=== PATIENT | female | born 1995 | race Caucasian/White ===

== ENCOUNTER 2017-08-17 02:57 | Emergency (ER) | payer OTHER ==
[~2017-08-17] VITALS: Ht 160 cm; Wt 61.4 kg
[~2017-08-17 02:57] MED LIST: BACT400T PO
[2017-08-17 03:01] VITALS: BP 116/63; PULSE 91; RESP 18; TEMP 98; O2SAT 99
--- NOTE | 2017-08-17 04:33 | PD ---
HPI Chief Complaint: Related Problem Time Seen by Provider: 04:32 Travel History International Travel<30 days: No Contact w/Intl Traveler<30days: No Traveled to known affect area: No History of Present Illness HPI The patient is a 21-year-old female that came to the emergency department because she wants confirmation on her test. She had 2 test which were positive at home and [facility] On the third of this month. She has some minimal cramping. She denies any vaginal bleeding and is in no pain now. She is G1, P0, A0. PFSH Past Medical History ADHD: No Anxiety: Yes Cancer: No Cardiovascular Problems: No Diabetes: No Diminished Hearing: No Psychiatric: No Migraines: No Seizures: No Thyroid Disease: No Ulcer: No Tetanus Vaccination: Unknown Influenza Vaccination: No ?: Past Surgical History Other Surgery: No Social History Alcohol Use: No Tobacco Use: No Substance Use: No (DENIES) Allergies-Medications (Allergen,Severity, Reaction): Coded Allergies: No Known Allergies (Unverified , 08/21/13) Reported Meds & Prescriptions Reported Meds & Active Scripts Active Reported Bactrim (Sulfamethoxazole-Trimethoprim) 400-80 Mg Tab 1 Tab PO BID Review of Systems Except as stated in HPI: all other systems reviewed are Neg Physical Exam Narrative GENERAL: The patient is alert, oriented 3 in no apparent distress. Her vital signs are normal. SKIN: Focused skin assessment warm/dry. HEAD: Atraumatic. Normocephalic. EYES: Pupils equal and round. No scleral icterus. No injection or drainage. ENT: No nasal bleeding or discharge. Mucous membranes pink and moist. NECK: Trachea midline. No JVD. CARDIOVASCULAR: Regular rate and rhythm. No murmur appreciated. RESPIRATORY: No accessory muscle use. Clear to auscultation. Breath sounds equal bilaterally. GASTROINTESTINAL: Abdomen soft, non-tender, nondistended. Hepatic and splenic margins not palpable. No guarding or rebound is present. MUSCULOSKELETAL: No obvious deformities. No clubbing. No cyanosis. No edema. NEUROLOGICAL: Awake and alert. No obvious cranial nerve deficits. Motor grossly within normal limits. Normal speech. PSYCHIATRIC: Appropriate mood and affect; insight and judgment normal. Data Data Last Documented VS Vital Signs Date Time Temp Pulse Resp B/P (MAP) Pulse Ox O2 Delivery O2 Flow Rate FiO2 08/17/17 03:43 16 08/17/17 03:01 98.0 91 116/63 (80) 99 Orders Orders Beta Hcg (Quant/Titer) (08/17/17 04:33) Complete Blood Count With Diff (08/17/17 04:33) Basic Metabolic Panel (Bmp) (08/17/17 04:33) Urinalysis - C+S If Indicated (08/17/17 04:33) Labs Laboratory Tests Test 08/17/17 04:41 White Blood Count 6.9 TH/MM3 Red Blood Count 4.01 MIL/MM3 Hemoglobin 11.6 GM/DL Hematocrit 35.4 % Mean Corpuscular Volume 88.3 FL Mean Corpuscular Hemoglobin 28.9 PG Mean Corpuscular Hemoglobin Concent 32.7 % Red Cell Distribution Width 12.6 % Platelet Count 220 TH/MM3 Mean Platelet Volume 9.4 FL Neutrophils (%) (Auto) 70.7 % Lymphocytes (%) (Auto) 22.2 % Monocytes (%) (Auto) 5.8 % Eosinophils (%) (Auto) 0.7 % Basophils (%) (Auto) 0.6 % Neutrophils # (Auto) 5.0 TH/MM3 Lymphocytes # (Auto) 1.5 TH/MM3 Monocytes # (Auto) 0.4 TH/MM3 Eosinophils # (Auto) 0.0 TH/MM3 Basophils # (Auto) 0.0 TH/MM3 CBC Comment DIFF FINAL Differential Comment Urine Color YELLOW Urine Turbidity CLEAR Urine pH 5.5 Urine Specific [place] 1.020 Urine Protein NEG mg/dL Urine Glucose (UA) NEG mg/dL Urine Ketones NEG mg/dL Urine Occult Blood NEG Urine Nitrite NEG Urine Bilirubin NEG Urine Urobilinogen 0.2 MG/DL Urine Leukocyte Esterase NEG Urine RBC 0-2 /hpf Urine WBC 0-2 /hpf Urine Squamous Epithelial Cells 0-5 /hpf Urine Bacteria NONE /hpf Microscopic Urinalysis Comment CULT NOT INDICATED Blood Urea Nitrogen 11 MG/DL Creatinine 0.57 MG/DL Random Glucose 90 MG/DL Calcium Level 8.6 MG/DL Sodium Level 137 MEQ/L Potassium Level 3.6 MEQ/L Chloride Level 106 MEQ/L Carbon Dioxide Level 23.4 MEQ/L Anion Gap 8 MEQ/L Estimat Glomerular Filtration Rate 137 ML/MIN Human Chorionic Gonadotropin, Quant 243 MIU/ML MDM Medical Decision Making Medical Screen Exam Complete: Yes Emergency Medical Condition: Yes Medical Record Reviewed: Yes Interpretation(s) The CBC is normal. The urinalysis shows specific gravity 1.020 and is completely normal and culture is not indicated. The beta-hCG is 243 and the basic metabolic profile is normal. Differential Diagnosis Early , anemia, electrolyte disorder Narrative Course The patient at this time has an uncomplicated, likely intrauterine . This is very early and she needs to follow-up with the health department as soon as possible. Diagnosis Primary Impression: Additional Instructions: As we discussed, follow-up with the health department, take your test with you. Disposition: 01 DISCHARGE HOME Condition: Stable Martinez Gomez MD Aug 17, 2017 04:33
[2017-08-17 05:01] LABS: BILIRUBIN, URINE NEG (NEG); BLOOD, URINE NEG (NEG); GLUCOSE,URINE NEG (NEG); KETONE, URINE NEG (NEG); NITRITE,URINE NEG (NEG); PH, URINE 5.5 (5.0-8.5); URINE COLOR YELLOW (YELLW/STRAW); URINE LEUKOCYTE ESTERASE NEG (NEG)
[2017-08-17 05:02] LABS: BASOPHIL % 0.6 % (0.0-2.0); EOSINOPHIL % 0.7 % (0.0-4.0); HEMATOCRIT 35.4 % (35.0-46.0); HEMOGLOBIN 11.6 GM/DL (11.6-15.3); LYMPH % 22.2 % (9.0-44.0); LYMPHOCYTE # 1.5 TH/MM3 (1.0-4.8); MEAN CELL VOLUME 88.3 FL (80.0-100.0); MEAN CORPUSCULAR HEMOGLOBIN 28.9 PG (27.0-34.0); MEAN CORPUSCULAR HGB CONC 32.7 % (32.0-36.0); MEAN PLATELET VOLUME 9.4 FL (7.0-11.0); MONO % 5.8 % (0.0-8.0); MONOCYTE # 0.4 TH/MM3 (0-0.9); NEUT % 70.7 % (16.0-70.0); PLATELET COUNT 220 TH/MM3 (150-450); RED BLOOD COUNT 4.01 MIL/MM3 (4.00-5.30); RED CELL DISTRIBUTION WIDTH 12.6 % (11.6-17.2); WHITE BLOOD COUNT 6.9 TH/MM3 (4.0-11.0)
[2017-08-17 05:05] LABS: RBC, URINE 0-2 /hpf (0-3); SQUAMOUS EPITHELIAL CELL URINE 0-5 /hpf (0-5); WBC, URINE 0-2 /hpf (0-5)
[2017-08-17 05:12] LABS: BICARBONATE 23.4 MEQ/L (21.0-32.0); CALCIUM 8.6 MG/DL (8.5-10.1)
[2017-08-17 05:16] LABS: CREATININE 0.57 MG/DL (0.50-1.00)
== END 2017-08-17 05:41 | disposition home or self-care (01) ==
LOC: PHED 02:57
DX: Z34.91 Encounter for supervision of normal pregnancy, unspecified, first trimester (principal); F41.9 Anxiety disorder, unspecified; Z79.2 Long term (current) use of antibiotics
CPT/HCPCS: 80048; 81001; 84702; 85025; 99283

== ENCOUNTER 2017-10-28 17:38 | Emergency (ER) | payer MEDICAID ==
[~2017-10-28] VITALS: Ht 160 cm; Wt 60.0 kg
[2017-10-28 17:46] VITALS: BP 103/63; PULSE 101; RESP 13; TEMP 98.8; O2SAT 99
[2017-10-28] MEDS ORDERED: [UNRECOGNIZED DRUG - REMARK] (18:29)
[2017-10-28 18:30] VITALS: BP 116/74; PULSE 82; RESP 18; O2SAT 97
[2017-10-28] MEDS ORDERED: SODIUM CHLOR 0.9% 1000 ML INJ 1,000 ML IV ONE ×2 (19:15→20:30)
[2017-10-28 19:29] VITALS: O2SAT 99
--- NOTE | 2017-10-28 19:38 | PD ---
HPI Chief Complaint: Related Problem Time Seen by Provider: 19:02 Travel History International Travel<30 days: No Contact w/Intl Traveler<30days: No Traveled to known affect area: No History of Present Illness HPI The patient is a 21 year old female at 14 weeks 5/7 days gestation who presents to the [facility] emergency department with a history of nausea and vomiting that began last night. She reports that she has had mild related nausea with infrequent vomiting during her first trimester, therefore this was much different than the last few weeks. She reports that around midnight last night she began to have nausea vomiting. She reports that she had nausea and vomiting 3 times total. She denies having any diarrhea. She last moved her bowels earlier today. She denies having any blood in her stool or mucus in her stool. She denies having any known sick contacts. The patient reports having some dizziness today. The patient reports that the dizzy sensation is a sensation of feeling lightheaded when she stands. She denies having any vaginal discharge or vaginal bleeding. She denies having any abdominal pain. She reports that her RN [employer] is actually a nurse store leader, Reyna Brambila. The patient reports that she has not felt the baby move yet. On review of systems otherwise, the patient denies having any known recent fevers, cough or congestion, dysuria, hematuria, urinary urgency, urinary frequency, neck pain, chest pain, shortness of breath, or neurologic symptoms. PFSH Past Medical History Narrative Medical The patient's past medical history is reportedly none. ADHD: No Anxiety: Yes Cancer: No Cardiovascular Problems: No Diabetes: No Diminished Hearing: No Psychiatric: No Migraines: No Seizures: No Thyroid Disease: No Ulcer: No ?: LMP: 07/17/17 Past Surgical History Narrative Surgical The patient's past surgical history is reportedly none. Other Surgery: Yes (WISDOM TEETH ) Social History Alcohol Use: No Tobacco Use: No Substance Use: No (DENIES) Allergies-Medications (Allergen,Severity, Reaction): Coded Allergies: ondansetron (Verified Allergy, Intermediate, 10/28/17) No Known Allergies (Unverified Allergy, Unknown, 10/28/17) Reported Meds & Prescriptions Reported Meds & Active Scripts Active Promethazine (Promethazine HCl) 12.5 Mg Tab 12.5 Mg PO Q6H PRN Macrobid (Nitrofurantoin Monoh/Nitrofur Macro) 100 Mg Cap 100 Mg PO BID 7 Days Reported [Prenatvit W/O Iron] Review of Systems Except as stated in HPI: all other systems reviewed are Neg General / Constitutional: No: Fever Eyes: No: Visual changes HENT: No: Headaches Cardiovascular: No: Chest Pain or Discomfort Respiratory: No: Shortness of Breath Gastrointestinal: Positive: Nausea, Vomiting, No: Diarrhea, Hematemesis, Hematochezia, Changes in Bowel Habits, Indigestion, Loss of Appetite Genitourinary: No: Urgency, Frequency, Dysuria, Hematuria, Pelvic Pain, Vaginal Bleeding Musculoskeletal: No: Pain Skin: No Rash Neurologic: No: Weakness Psychiatric: No: Depression Endocrine: No: Polydipsia Hematologic/Lymphatic: No: Easy Bruising Physical Exam Narrative General: The patient is a well-developed well-nourished female in no acute distress. Head and Neck exam: Head is normocephalic atraumatic. Eyes: EOMI, pupils are equal round and reactive to light. Nose: Midline septum with pink mucous membranes Mouth: Dentition unremarkable. Moist mucus membranes. Posterior oropharynx is not erythematous. No tonsillar hypertrophy. Uvula midline. Airway patent. Neck: No palpable lymphadenopathy. No nuchal rigidity. No thyromegaly. Cardiovascular: Regular rate and rhythm without murmurs, gallops, or rubs. No pulse deficit to the extremities on simultaneous auscultation and palpation of her radial artery. Lungs: Clear to auscultation bilaterally. No wheezes, rhonchi, or rales. Abdomen: Soft, without tenderness to palpation in all 4 quadrants of the abdomen. The patient has slight prominence of the suprapubic area suggestive of an early . No guarding, rebound, or rigidity. Normal bowel sounds are audible. No tenderness on palpation of McBurney's point. Negative Castellanos sign. Extremities: No clubbing, cyanosis, or edema. 2+ pulses in all 4 extremities. No calf tenderness on palpation. Back: No spinous process tenderness to palpation. No costovertebral angle tenderness to palpation. Neurologic Exam: Grossly nonfocal. Skin Exam: No rash noted. Intact skin that is warm and dry. Data Data Last Documented VS Vital Signs Date Time Temp Pulse Resp B/P (MAP) Pulse Ox O2 Delivery O2 Flow Rate FiO2 10/28/17 19:57 74 16 109/60 (76) 76 16 112/67 (82) 76 16 114/69 (84) 10/28/17 19:29 99 Room Air 10/28/17 17:46 98.8 Orders Orders Electrocardiogram (10/28/17 ) Complete Blood Count With Diff (10/28/17 19:03) Comprehensive Metabolic Panel (10/28/17 19:03) Lipase (10/28/17 19:03) Urinalysis - C+S If Indicated (10/28/17 19:03) Magnesium (Mg) (10/28/17 19:03) Iv Access Insert/Monitor (10/28/17 19:03) Ecg Monitoring (10/28/17 19:03) Oximetry (10/28/17 19:03) Ed Poc Ultrasound (10/28/17 ) Sodium Chlor 0.9% 1000 Ml Inj (Ns 1000 M (10/28/17 19:15) Orthostatic Vital Signs (10/28/17 19:38) Sodium Chlor 0.9% 1000 Ml Inj (Ns 1000 M (10/28/17 20:30) Oral Rehydration (10/28/17 20:30) Potassium Chloride (Kcl) (10/28/17 20:30) Labs Laboratory Tests Test 10/28/17 19:25 White Blood Count 7.3 TH/MM3 Red Blood Count 4.17 MIL/MM3 Hemoglobin 12.4 GM/DL Hematocrit 37.0 % Mean Corpuscular Volume 88.6 FL Mean Corpuscular Hemoglobin 29.7 PG Mean Corpuscular Hemoglobin Concent 33.5 % Red Cell Distribution Width 13.1 % Platelet Count 246 TH/MM3 Mean Platelet Volume 9.6 FL Neutrophils (%) (Auto) 72.3 % Lymphocytes (%) (Auto) 20.1 % Monocytes (%) (Auto) 6.7 % Eosinophils (%) (Auto) 0.5 % Basophils (%) (Auto) 0.4 % Neutrophils # (Auto) 5.3 TH/MM3 Lymphocytes # (Auto) 1.5 TH/MM3 Monocytes # (Auto) 0.5 TH/MM3 Eosinophils # (Auto) 0.0 TH/MM3 Basophils # (Auto) 0.0 TH/MM3 CBC Comment DIFF FINAL Differential Comment Urine Color YELLOW Urine Turbidity CLEAR Urine pH 6.0 Urine Specific [place] 1.014 Urine Protein NEG mg/dL Urine Glucose (UA) NEG mg/dL Urine Ketones NEG mg/dL Urine Occult Blood NEG Urine Nitrite NEG Urine Bilirubin NEG Urine Urobilinogen LESS THAN 2 mg/dL Urine Leukocyte Esterase NEG Urine RBC LESS THAN 1 /hpf Urine WBC 2 /hpf Urine Squamous Epithelial Cells 1 /hpf Urine Bacteria OCC /hpf Urine Mucus MANY /lpf Microscopic Urinalysis Comment CULT NOT INDICATED Blood Urea Nitrogen 9 MG/DL Creatinine 0.50 MG/DL Random Glucose 82 MG/DL Total Protein 7.0 GM/DL Albumin 3.3 GM/DL Calcium Level 8.9 MG/DL Magnesium Level 2.2 MG/DL Alkaline Phosphatase 53 U/L Aspartate Amino Transf (AST/SGOT) 14 U/L Alanine Aminotransferase (ALT/SGPT) 14 U/L Total Bilirubin 0.2 MG/DL Sodium Level 138 MEQ/L Potassium Level 3.3 MEQ/L Chloride Level 105 MEQ/L Carbon Dioxide Level 23.2 MEQ/L Anion Gap 10 MEQ/L Estimat Glomerular Filtration Rate 159 ML/MIN Lipase 110 U/L MDM Medical Decision Making Medical Screen Exam Complete: Yes Emergency Medical Condition: Yes Medical Record Reviewed: Yes Differential Diagnosis Viral syndrome, versus electrolyte derangements, versus dehydration, versus related nausea vomiting Narrative Course During the course of the patient's emergency department visit, the patient's history, examination, and differential diagnosis were reviewed with the patient. The patient was placed on a monitoring tech with oximetry and frequent blood pressure monitoring. The patient had IV access obtained and blood work sent for analysis. The patient was initially provided normal saline 1 L IV fluid bolus. The patient's laboratory studies were reviewed and remarkable for a white count of 7.3, hemoglobin 12.4, platelets 246 with 72.3 neutrophils, CMP is remarkable for potassium of 3.3 which was supplemented orally, AST 14, albumin 3.3, lipase 110, urinalysis shows occasional bacteria, many mucus, culture not indicated. A bedside ultrasound was done by me. The patient had heart activity noted with an active fetus on examination, heart rate was in the 160s. The patient is resting comfortably and feels better, is alert and in no distress. The patient's results and examination findings were discussed with the patient. The repeat examination is unremarkable and benign. The history, exam, diagnostic testing, and current condition do not suggest any significant pathology to warrant further testing, continued ED treatment, admission, or surgical evaluation at this point. The vital signs have been stable. The patient does not have uncontrollable pain, intractable vomiting, or other significant symptoms. The patient's condition is stable and appropriate for discharge. The patient will pursue further outpatient evaluation with a primary care physician or other designated or consulting physician as indicated in the discharge instructions. The patient is instructed to report back to the emergency department immediately for reexamination in the mean time if she develops any new or worsening signs or symptoms. The patient expressed understanding and was agreeable with this plan. Procedures Procedure Narrative Emergency Department Pelvic ultrasound was performed with patient consent. The curvilinear probe was used in the transverse and sagittal views within the suprapubic region revealing single intrauterine . heart rate was 167 with an active fetus noted on examination. Diagnosis Primary Impression: Nausea & vomiting Qualified Codes: R11.2 - Nausea with vomiting, unspecified Additional Impressions: Nausea and vomiting in Asymptomatic bacteriuria during Referrals: Social Services Technician 2 days Patient Instructions: General Instructions, Nausea and Vomiting in ( ED), Urinary Tract Infection in (ED) Med/Other Pt SpecificInfo: Prescription(s) given Scripts Promethazine (Promethazine) 12.5 Mg Tab 12.5 MG PO Q6H Y for NAUSEA OR VOMITING, #4 TAB 0 Refills Prov: Jamee Jarvis MD 10/28/17 Nitrofurantoin Monohydrate Macrocrystals (Macrobid) 100 Mg Cap 100 MG PO BID for Infection for 7 Days, #14 CAP 0 Refills Prov: Jamee Jarvis MD 10/28/17 Disposition: 01 DISCHARGE HOME Condition: Stable Jamee Jarvis MD Oct 28, 2017 19:38
[2017-10-28 19:48] LABS: AUTOMATED NEUTROPHIL # 5.3 TH/MM3 (1.8-7.7); BASOPHIL % 0.4 % (0.0-2.0); EOSINOPHIL % 0.5 % (0.0-4.0); HEMOGLOBIN 12.4 GM/DL (11.6-15.3); LYMPH % 20.1 % (9.0-44.0); LYMPHOCYTE # 1.5 TH/MM3 (1.0-4.8); MEAN CELL VOLUME 88.6 FL (80.0-100.0); MEAN CORPUSCULAR HEMOGLOBIN 29.7 PG (27.0-34.0); MEAN CORPUSCULAR HGB CONC 33.5 % (32.0-36.0); MEAN PLATELET VOLUME 9.6 FL (7.0-11.0); MONO % 6.7 % (0.0-8.0); MONOCYTE # 0.5 TH/MM3 (0-0.9); NEUT % 72.3 % (16.0-70.0); PLATELET COUNT 246 TH/MM3 (150-450); RED BLOOD COUNT 4.17 MIL/MM3 (4.00-5.30); RED CELL DISTRIBUTION WIDTH 13.1 % (11.6-17.2); WHITE BLOOD COUNT 7.3 TH/MM3 (4.0-11.0)
[2017-10-28 19:57] VITALS: BP_SYST 109; BP_SYST 112; BP_SYST 114; BP_DIAS 60; BP_DIAS 67; BP_DIAS 69; RESP 16
[2017-10-28 20:01] LABS: BACTERIA, URINE OCC /hpf; BILIRUBIN, URINE NEG (NEG); BLOOD, URINE NEG (NEG); GLUCOSE,URINE NEG (NEG); KETONE, URINE NEG (NEG); MUCUS URINE MANY /lpf (OCC); NITRITE,URINE NEG (NEG); SQUAMOUS EPITHELIAL CELL URINE 1 /hpf (0-5); URINE COLOR YELLOW (YELLW/STRAW); URINE LEUKOCYTE ESTERASE NEG (NEG)
[2017-10-28 20:13] LABS: ALBUMIN 3.3 GM/DL (3.4-5.0); AST (GOT) 14 U/L (16-38); BICARBONATE 23.2 MEQ/L (21.0-32.0); BLOOD UREA NITROGEN 9 MG/DL (7-18); CALCIUM 8.9 MG/DL (8.5-10.1); CHLORIDE 105 MEQ/L (98-107); GLOMERULAR FILTRATION RATE 159 ML/MIN (>89); GLUCOSE,RANDOM 82 MG/DL (74-106); MAGNESIUM 2.2 MG/DL (1.5-2.5); SODIUM (NA) 138 MEQ/L (136-145)
[2017-10-28 20:14] LABS: ALT (GPT) 14 U/L (9-42)
[2017-10-28 20:17] LABS: ALKALINE PHOSPHATASE 53 U/L (45-117); TOTAL BILIRUBIN ADULT 0.2 MG/DL (0.2-1.0)
[2017-10-28] MEDS ORDERED: POTASSIUM CHLORIDE 10 MEQ CONTROLLED RELEASE TAB PO ONE (20:30)
[2017-10-28] MEDS ORDERED: MACR100C2 PO (20:44)
[2017-10-28] MEDS ORDERED: PROM12.54 PO (20:44)
[2017-10-28] MEDS ORDERED: PROMETHAZINE HCL 25 MG TAB PO ONE (21:45)
--- NOTE | 2017-10-29 23:07 | EKG ---
Date Performed: 10/28/2017 Time Performed: 18:37:12 PTAGE: 21 years EKG: Sinus rhythm POSSIBLE RIGHT VENTRICULAR CONDUCTION DELAY BORDERLINE ECG NO PREVIOUS TRACING DOCTOR: Yokasta Betancourt Interpretating Date/Time 10/29/2017 22:58:37
== END 2017-10-28 21:52 | disposition home or self-care (01) ==
LOC: NEPC 17:38
DX: O21.9 Vomiting of pregnancy, unspecified (principal); O26.892 Other specified pregnancy related conditions, second trimester; R82.71 Bacteriuria; R94.31 Abnormal electrocardiogram [ECG] [EKG]; O99.342 Other mental disorders complicating pregnancy, second trimester; F41.9 Anxiety disorder, unspecified; Z3A.14 14 weeks gestation of pregnancy
CPT/HCPCS: 80053; 81001; 83690; 83735; 85025; 93005; 96360; 96361; 99284; J7030; Q0169